=== PATIENT | female | born 1980 | race African-American/Black ===

== ENCOUNTER 2025-01-22 13:23 | Inpatient (IN) | payer SELFPAY ==
[~2025-01-22] VITALS: Ht 165.1 cm; Wt 81.9 kg
[2025-01-22] VITALS (26 sets, daily range): BP systolic 114–175; BP diastolic 80–110; PULSE 105–142; RESP 16–27; TEMP 37.3–37.4; O2SAT 98–100
[2025-01-22] MEDS: SODIUM CHLORIDE 0.9% 1,000 ML IV ONE (13:44)
[2025-01-22] MEDS: NALOXONE HCL 0.4MG/ML 1ML VIAL IV PRN (13:49)
[2025-01-22 14:22] LABS: HEMATOCRIT. 34.8 % (36.0-48.0); HEMOGLOBIN. 11.6 g/dL (12.0-16.0); LYMPHOCYTES % 39.8 % (20.0-50.0); MEAN CORPUSCULAR HEMOGLOBIN 28.6 pg (28.0-32.0); MEAN CORPUSCULAR HGB CONC 33.3 g/dL (31.0-37.0); MEAN CORPUSCULAR VOLUME 85.8 fL (81.0-99.0); MEAN PLATELET VOLUME 10.3 fl (7.4-10.4); MONOCYTES % 7.2 % (2.0-8.0); PLATELET 255 x1000/uL (130-400); RED BLOOD CELL COUNT 4.06 mill/uL (4.2-5.4); RED CELL DISTRIBUTION WIDTH 15.2 % (11.6-14.6); WHITE BLOOD COUNT 6.7 x1000/uL (4.5-11.0)
[2025-01-22 14:35] LABS: CHLORIDE 107 mEq/L (98-107); POTASSIUM 3.2 mEq/L (3.5-5.1); SODIUM 140 mEq/L (136-145)
[2025-01-22 14:36] LABS: CARBON DIOXIDE 21 mEq/L (21-32)
[2025-01-22] MEDS: PROPOFOL 10MG/ML 100ML 100 ML IV ONE (14:36)
[2025-01-22 14:37] LABS: CALCIUM 8.9 mg/dL (8.7-10.4)
[2025-01-22 14:41] LABS: GLUCOSE 131 mg/dL (70-105)
[2025-01-22 14:42] LABS: ETHANOL BLOOD 70 mg/dL (<10); UREA NITROGEN BLOOD 21 mg/dL (9-23)
[2025-01-22 14:43] LABS: ACETAMINOPHEN < 2 ug/mL (10-30)
[2025-01-22] MEDS: ROCURONIUM BROMIDE 10MG/ML VIAL 5ML IV ONE (14:45)
[2025-01-22 15:51] LABS: CLARITY URINE CLEAR (CLEAR); COLOR URINE YELLOW (YELLOW); GLUCOSE URINE NEGATIVE (NEGATIVE); KETONES URINE NEGATIVE (NEGATIVE); LEUKOCYTE ESTERASE URINE NEGATIVE (NEGATIVE); NITRITE URINE NEGATIVE (NEGATIVE); OCCULT BLOOD URINE NEGATIVE (NEGATIVE); PROTEIN URINE NEGATIVE (NEGATIVE); SPECIFIC GRAVITY URINE 1.008 (1.005-1.030); UROBILINOGEN URINE 0.2 E.U./dL (0.2-1.0)
[2025-01-22 16:06] LABS: *AMPHETAMINES SCREEN URINE PRESUMPTIVE POSITIVE (NEGATIVE); *BARBITURATES SCREEN URINE NEGATIVE (NEGATIVE); *BENZODIAZEPINES SCREEN URINE NEGATIVE (NEGATIVE); *COCAINE SCREEN URINE NEGATIVE (NEGATIVE); CANNABINOID URINE SCREEN NEGATIVE (NEGATIVE); ECSTASY MDMA SCREEN URINE NEGATIVE (NEGATIVE); METHADONE URINE SCREEN NEGATIVE (NEGATIVE); OPIATES URINE SCREEN NEGATIVE (NEGATIVE); PHENCYCLIDINE URINE SCREEN NEGATIVE (NEGATIVE)
[2025-01-22] MEDS ORDERED: MIDAZOLAM 100MG/100ML PMX 100 ML IV PRN ×2 (17:00→20:30)
[2025-01-22] MEDS ORDERED: SODIUM CHLORIDE 0.9% 1,000 ML IV SCH (17:00)
[2025-01-22] MEDS ORDERED: IPRATROPIUM/ALBUTEROL 0.5-3(2.5)MG/3ML NEB HHN PRN (17:00)
[2025-01-22] MEDS ORDERED: ONDANSETRON HCL 4MG/2ML INJ IV PRN (17:00)
[2025-01-22] MEDS ORDERED: HYDROCODONE/ACETAMINOPHEN 5/325MG TABLET PO PRN (17:00)
[2025-01-22] MEDS ORDERED: HYDROCODONE/ACETAMINOPHEN 7.5/325MG TABLET PO PRN (17:00)
[2025-01-22] MEDS ORDERED: DOCUSATE SODIUM 100MG CAPSULE PO PRN (17:00)
[2025-01-22] MEDS ORDERED: MAGNESIUM/ALUMINUM HYDROXIDE/SIMETHICONE 30ML UDC PO PRN (17:00)
[2025-01-22] MEDS ORDERED: ACETAMINOPHEN 325MG TABLET PO PRN ×2 (17:00)
[2025-01-22] MEDS: MIDAZOLAM 100MG/100ML PMX 100 ML IV PRN (17:13)
[2025-01-22] MEDS ORDERED: SODIUM BICARBONATE 8.4% 50MEQ/50ML SYR IV NR (17:15)
[2025-01-22 17:52] LABS: BG BASE EXCESS 1.1 mmol/L (-2.0-3.0); BG CARBOXYHEMOGLOBIN 0.3 % (0.5-1.5); BG DEOXYHEMOGLOBIN 0.5 % (0.0-5.0); BG FRACTION INSPIRED OXYGEN 40; BG HCO3 ACT 23.5 mmol/L (21.0-28.0); BG METHEMOGLOBIN 0.1 % (0.5-1.5); BG OXYGEN SATURATION 99.5 % (94.0-98.0); BG OXYHEMOGLOBIN 99.1 % (94.0-98.0); BG PH 7.498 (7.350-7.450); BG PO2 180.6 mmHg (83.0-108.0); BG SAMPLE SITE RIGHT RADIAL; BG TOTAL HEMOGLOBIN 13.5 g/dL (12.0-16.0); BG VENT MODE VENT - AC
[2025-01-22] MEDS: ENOXAPARIN 40MG/0.4ML SYR SUBCUT SCH (18:45)
[2025-01-22] MEDS: POTASSIUM CHLORIDE 20MEQ/PACKET PO NR (18:52)
[2025-01-22 20:13] LABS: IRON 111 ug/dL (50-170)
[2025-01-22 20:16] LABS: TOTAL IRON BINDING CAPACITY 260 ug/dl (250-425)
[2025-01-22 20:19] LABS: FOLIC ACID (FOLATE) SERUM > 20.00 ng/mL (>5.38); VITAMIN B12 SERUM 659 pg/mL (211-911)
[2025-01-22 20:20] LABS: FERRITIN 172 ng/mL (10-291)
[2025-01-22] MEDS: IPRATROPIUM/ALBUTEROL 0.5-3(2.5)MG/3ML NEB HHN SCH (20:25)
[2025-01-22] MEDS ORDERED: FENTANYL 2500MCG/250ML PMX 250 ML IV ONE (20:30)
[2025-01-22] MEDS ORDERED: HYDRALAZINE 20MG/ML VIAL IV PRN (21:30)
[2025-01-22] MEDS: FENTANYL CITRATE 2,500 MCG in SODIUM CHLORIDE 0.9% 200 ML IV PRN (21:31)
[2025-01-22] MEDS: SODIUM CHLORIDE 0.9% 1,000 ML IV SCH (21:37)
[2025-01-23] VITALS (98 sets, daily range): BP systolic 102–179; BP diastolic 74–138; PULSE 90–136; RESP 12–35; TEMP 36.6–37.1; O2SAT 97–100
[2025-01-23 00:33] LABS: CREATINE KINASE 207 IU/L (34-145)
[2025-01-23 00:49] LABS: TROPONIN I HIGH SENSITIVITY 149 ng/L (3.0-34)
[2025-01-23] MEDS: LACTATED RINGERS 1,000 ML IV ONE (03:21)
[2025-01-23 05:24] LABS: AMMONIA < 17 uMol/L (<32)
[2025-01-23 05:57] LABS: BASOPHILS % 0.6 % (0.0-2.0); EOSINOPHILS % 0.3 % (0.0-5.0); HEMATOCRIT. 35.9 % (36.0-48.0); HEMOGLOBIN. 11.6 g/dL (12.0-16.0); MEAN CORPUSCULAR HEMOGLOBIN 28.6 pg (28.0-32.0); MEAN CORPUSCULAR HGB CONC 32.4 g/dL (31.0-37.0); MEAN CORPUSCULAR VOLUME 88.3 fL (81.0-99.0); MEAN PLATELET VOLUME 10.1 fl (7.4-10.4); MONOCYTES % 12.9 % (2.0-8.0); NEUTROPHILS % 58.2 % (40.0-76.0); PLATELET 231 x1000/uL (130-400); RED BLOOD CELL COUNT 4.07 mill/uL (4.2-5.4); RED CELL DISTRIBUTION WIDTH 15.3 % (11.6-14.6); WHITE BLOOD COUNT 7.3 x1000/uL (4.5-11.0)
[2025-01-23 06:06] LABS: CHLORIDE 109 mEq/L (98-107); POTASSIUM 3.8 mEq/L (3.5-5.1); SODIUM 142 mEq/L (136-145)
[2025-01-23 06:07] LABS: CARBON DIOXIDE 26 mEq/L (21-32)
[2025-01-23 06:08] LABS: CALCIUM 8.9 mg/dL (8.7-10.4)
[2025-01-23 06:12] LABS: CREATININE 0.6 mg/dL (0.6-1.0); GLUCOSE 97 mg/dL (70-105)
[2025-01-23 06:13] LABS: LDL CHOLESTEROL 108 mg/dL (5-100); TRIGLYCERIDE 55 mg/dL (0-150); UREA NITROGEN BLOOD 12 mg/dL (9-23)
[2025-01-23 06:14] LABS: ALANINE AMINOTRANSFERASE 22 IU/L (10-49); ALBUMIN 3.9 g/dL (3.2-4.8); ASPARTATE AMINOTRANSFERASE 18 IU/L (<34); CHOLESTEROL 201 mg/dL (<200)
[2025-01-23 06:15] LABS: BILIRUBIN DIRECT 0.4 mg/dL (<=3.0); BILIRUBIN TOTAL 1.5 mg/dL (0.1-1.0); HDL CHOLESTEROL 86 mg/dL (>65); PROTEIN TOTAL 6.5 g/dL (6.0-8.3)
[2025-01-23 06:16] LABS: T4 FREE 1.46 ng/dL (0.89-1.76)
[2025-01-23 06:17] LABS: THYROID STIMULATING HORMONE 2.17 uIU/mL (0.55-4.78)
[2025-01-23 06:25] LABS: CREATINE KINASE 159 IU/L (34-145)
[2025-01-23 06:36] LABS: TROPONIN I HIGH SENSITIVITY 121 ng/L (3.0-34)
[2025-01-23 09:55] LABS: BG CARBOXYHEMOGLOBIN 0.7 % (0.5-1.5); BG DEOXYHEMOGLOBIN 0.8 % (0.0-5.0); BG FRACTION INSPIRED OXYGEN 40; BG HCO3 ACT 23.2 mmol/L (21.0-28.0); BG METHEMOGLOBIN 0.1 % (0.5-1.5); BG OXYGEN SATURATION 99.2 % (94.0-98.0); BG OXYHEMOGLOBIN 98.4 % (94.0-98.0); BG PCO2 32.5 mmHg (32.0-45.0); BG PH 7.471 (7.350-7.450); BG PO2 154.3 mmHg (83.0-108.0); BG SAMPLE SITE RIGHT RADIAL; BG TOTAL HEMOGLOBIN 11.1 g/dL (12.0-16.0); BG TOTAL RESPIRATORY RATE 19 b/min; BG VENT MODE VENT - AC
[2025-01-23] MEDS: PANTOPRAZOLE SODIUM 40 MG/VIAL IV SCH (10:36)
[2025-01-23] MEDS: AMLODIPINE 10MG TABLET GT SCH (10:36)
[2025-01-23] MEDS: BLOOD SUGAR DIAGNOSTIC STRIP TEST SCH (12:00)
[2025-01-23] MEDS: DEXT 5%/0.9% NACL 1,000 ML IV SCH (13:04)
[2025-01-23] MEDS ORDERED: DEXTROSE 50% WATER 50ML SYRINGE IV PRN (13:30)
[2025-01-23] MEDS: NALOXONE HCL 0.4MG/ML VIAL IV PRN (16:19)
[2025-01-23] MEDS: CLONIDINE 0.1MG TABLET PO PRN (18:22)
[2025-01-23 22:14] LABS: BG CARBOXYHEMOGLOBIN 0.5 % (0.5-1.5); BG DEOXYHEMOGLOBIN 0.7 % (0.0-5.0); BG FRACTION INSPIRED OXYGEN 40; BG HCO3 ACT 24.5 mmol/L (21.0-28.0); BG METHEMOGLOBIN 0.2 % (0.5-1.5); BG OXYGEN SATURATION 99.3 % (94.0-98.0); BG OXYHEMOGLOBIN 98.6 % (94.0-98.0); BG PCO2 35.2 mmHg (32.0-45.0); BG PO2 171.4 mmHg (83.0-108.0); BG SAMPLE SITE RIGHT RADIAL; BG TOTAL HEMOGLOBIN 11.8 g/dL (12.0-16.0); BG VENT MODE VENT - SIMV
[2025-01-24] VITALS (81 sets, daily range): BP systolic 107–168; BP diastolic 64–107; PULSE 76–117; RESP 13–34; TEMP 36.4–37; O2SAT 95–100
[2025-01-24] MEDS: DEXMEDETOMIDINE 400 MCG/100 ML 100 ML IV PRN (00:04)
[2025-01-24 00:57] LABS: TROPONIN I HIGH SENSITIVITY 45 ng/L (3.0-34)
[2025-01-24 05:56] LABS: HEMATOCRIT 34.7 % (36.0-48.0); HEMOGLOBIN 11.4 g/dL (12.0-16.0); MEAN CORPUSCULAR HEMOGLOBIN 28.8 pg (28.0-32.0); MEAN CORPUSCULAR HGB CONC 32.9 g/dL (31.0-37.0); MEAN CORPUSCULAR VOLUME 87.6 fL (81.0-99.0); PLATELET 215 x1000/uL (130-400); RED BLOOD CELL COUNT 3.96 mill/uL (4.2-5.4); RED CELL DISTRIBUTION WIDTH 15.3 % (11.6-14.6); WHITE BLOOD COUNT 6.9 x1000/uL (4.5-11.0)
[2025-01-24 06:26] LABS: CALCIUM 8.9 mg/dL (8.7-10.4); CHLORIDE 106 mEq/L (98-107); POTASSIUM 3.7 mEq/L (3.5-5.1); SODIUM 140 mEq/L (136-145)
[2025-01-24 06:27] LABS: CARBON DIOXIDE 25 mEq/L (21-32)
[2025-01-24 06:32] LABS: CREATININE 0.6 mg/dL (0.6-1.0); GLUCOSE 124 mg/dL (70-105); UREA NITROGEN BLOOD 7 mg/dL (9-23)
[2025-01-24 11:46] LABS: BG BASE EXCESS -1.2 mmol/L (-2.0-3.0); BG CARBOXYHEMOGLOBIN 0.3 % (0.5-1.5); BG DEOXYHEMOGLOBIN 1.2 % (0.0-5.0); BG FRACTION INSPIRED OXYGEN 28; BG HCO3 ACT 22.2 mmol/L (21.0-28.0); BG METHEMOGLOBIN 0.1 % (0.5-1.5); BG OXYGEN SATURATION 98.8 % (94.0-98.0); BG OXYHEMOGLOBIN 98.4 % (94.0-98.0); BG PCO2 32.8 mmHg (32.0-45.0); BG PH 7.449 (7.350-7.450); BG PO2 128.2 mmHg (83.0-108.0); BG SAMPLE SITE RIGHT RADIAL; BG VENT MODE NASAL CANNULA
[2025-01-25] VITALS (7 sets, daily range): BP systolic 111–152; BP diastolic 62–90; PULSE 72–100; RESP 18–20; TEMP 36.4–37.2; O2SAT 97
[2025-01-25] MEDS: GUAIFENESIN 200MG/10ML SUGAR FREE UDC PO PRN (04:06)
[2025-01-25 06:19] LABS: CARBON DIOXIDE 27 mEq/L (21-32); CHLORIDE 108 mEq/L (98-107); SODIUM 142 mEq/L (136-145)
[2025-01-25 06:20] LABS: CALCIUM 8.8 mg/dL (8.7-10.4)
[2025-01-25 06:24] LABS: CREATININE 0.7 mg/dL (0.6-1.0)
[2025-01-25 06:25] LABS: GLUCOSE 109 mg/dL (70-105); UREA NITROGEN BLOOD 12 mg/dL (9-23)
[2025-01-25 06:36] LABS: BASOPHILS % 0.6 % (0.0-2.0); EOSINOPHILS % 1.6 % (0.0-5.0); HEMATOCRIT. 32.2 % (36.0-48.0); HEMOGLOBIN. 10.6 g/dL (12.0-16.0); LYMPHOCYTES % 33.6 % (20.0-50.0); MEAN CORPUSCULAR HEMOGLOBIN 28.9 pg (28.0-32.0); MEAN CORPUSCULAR HGB CONC 32.9 g/dL (31.0-37.0); MEAN CORPUSCULAR VOLUME 87.8 fL (81.0-99.0); MEAN PLATELET VOLUME 10.3 fl (7.4-10.4); NEUTROPHILS % 57.2 % (40.0-76.0); PLATELET 220 x1000/uL (130-400); RED BLOOD CELL COUNT 3.67 mill/uL (4.2-5.4); RED CELL DISTRIBUTION WIDTH 14.7 % (11.6-14.6); WHITE BLOOD COUNT 5.7 x1000/uL (4.5-11.0)
[2025-01-25] MEDS: LORAZEPAM 0.5MG TABLET PO PRN (10:01)
== END 2025-01-25 14:35 | disposition home or self-care (01) | DRG 812 ==
LOC: ER 13:23 → EDBEDREQTM 16:21 → EDBEDREQ 16:21 → ENRESERV 17:45 → MICUSO 18:01 → 7WST 01-24 20:55
PROVIDERS: ADMIT Hospitalist; ATTEND Internal Medicine
PROC: 5A1945Z Respiratory Ventilation, 24-96 Consecutive Hours (ICD-10-PCS; principal; 2025-01-22)
PROC: 0BH17EZ Insertion of Endotracheal Airway into Trachea, Via Natural or Artificial Opening (ICD-10-PCS; 2025-01-22)
DX: T43.621A Poisoning by amphetamines, accidental (unintentional), initial encounter (principal); J96.01 Acute respiratory failure with hypoxia; I21.A1 Myocardial infarction type 2; G92.8 Other toxic encephalopathy; E87.20 Acidosis, unspecified; F15.10 Other stimulant abuse, uncomplicated; F10.129 Alcohol abuse with intoxication, unspecified; I10 Essential (primary) hypertension; E87.6 Hypokalemia; D64.9 Anemia, unspecified; R73.9 Hyperglycemia, unspecified; Y90.3 Blood alcohol level of 60-79 mg/100 ml; Y92.89 Other specified places as the place of occurrence of the external cause
CPT/HCPCS: 31500; 36415; 36600; 71045; 80048; 80053; 80061; 80076; 80305; 80307; 80320; 80329; 81003; 82140; 82375; 82550; 82607; 82728; 82746; 82805; 82962; 83036; 83540; 83550; 83605; 84145; 84439; 84443; 84484; 85025; 85027; 93005; 94002; 94003; 94070; 94640; 94664; 94760; 97161; 98960; 99291; J0360; J1650; J2250; J2310; J2470; J2704; J3490; J7030; J7042; G0480